=== PATIENT | male | born 1955 | race Caucasian/White ===

== ENCOUNTER 2023-11-05 13:44 | Inpatient (IN) | payer MEDICARE ==
--- NOTE | 2023-11-05 13:47 | ERPHSYRPT ---
- History of Present Illness Time Seen by Provider: 11/05/23 13:46 Source: patient, EMS Exam Limitations: no limitations Physician History: This is an overweight 68-year-old white male patient who presents to the emergency department by the ambulance service secondary to increasing/worsening shortness of breath. When EMS arrived to the patient's home, his room air oxy gen saturation levels 86%. Patient received 125 mg intravenous Solu-Medrol as well as 2 nebulizer treatments. There were rales present and therefore the paramedics provide the patient with Nitropaste topically. Patient arrives to the emergency department with DuoNeb treatment and an oxygen saturation level 95%. Patient denies chest pain. He denies fever. He has a chronic nonproductive cough. 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 He is a former smoker of cigarettes. Patient has a history of diabetes, hypertension, gastroesophageal reflux disease and hyperlipidemia. Timing/Duration: day(s) (2) Activities at Onset: none Severity of Dyspnea-Max: moderate Severity of Dyspnea-Current: moderate Possible Cause: occasional episodes Associated Symptoms: No chest pain/discomfort Allergies/Adverse Reactions: No Known Drug Allergies Allergy (Verified 11/05/23 13:45) Home Medications: Aspirin [Baby Aspirin] 81 mg PO DAILY 08/03/13 [History] Pravastatin Sodium [Pravachol] 40 mg PO DAILY 08/03/13 [History] Amlodipine Besylate 5 mg [Norvasc 5 mg] 10 mg PO DAILY 11/05/23 [History] Ascorbic Acid 500 mg [Vitamin C 500 MG] 1 tab PO DAILY 11/05/23 [History] Bumetanide 1 mg [Bumex 1 mg] 2 mg PO BID 11/05/23 [History] Famotidine 20 mg [Pepcid 20 MG] 40 mg PO DAILY 11/05/23 [History] Glipizide 5 mg [Glucotrol 5 MG] 1 tab PO BID 11/05/23 [History] [place]-3 Fatty Acids/Fish Oil [Fish Oil 1,000 mg Capsule] 1 cap PO DAILY 11/05/23 [History] Spironolactone 25 mg [Aldactone 25 MG] 1 tab PO BID 11/05/23 [History] Vitamin E (Dl,Tocopheryl Acet) [Vitamin E] 1 cap PO DAILY 11/05/23 [History] Hx Tetanus, Diphtheria Vaccination/Date Given: No Hx Influenza Vaccination/Date Given: Yes Hx Pneumococcal Vaccination/Date Given: No Travel Risk - International Travel Have you traveled outside of the country in past 3 weeks: No - Coronavirus Screening Are you exhibiting any of the following symptoms?: No Close contact with a COVID-19 positive Pt in past 14-21 Days: No - Review of Systems Constitutional: No Symptoms Eyes: No Symptoms Ears, Nose, & Throat: No Symptoms Respiratory: Dyspnea Cardiac: No Symptoms Abdominal/Gastrointestinal: No Symptoms Genitourinary Symptoms: No Symptoms Musculoskeletal: No Symptoms Skin: No Symptoms Neurological: No Symptoms Psychological: No Symptoms Endocrine: No Symptoms Hematologic/Lymphatic: No Symptoms Immunological/Allergic: No Symptoms All Other Systems: Reviewed and Negative - Past Medical History Pertinent Past Medical History: Yes Neurological History: No Pertinent History ENT History: Cataracts Cardiac History: High Cholesterol, Hypertension Respiratory History: No Pertinent History Endocrine Medical History: Diabetes Type II Musculoskeletal History: No Pertinent History GI Medical History: Gallbladder Disease History: No Pertinent History Psycho-Social History: No Pertinent History Male Reproductive Disorders: No Pertinent History - Past Surgical History Past Surgical History: Yes Neuro Surgical History: No Pertinent History Cardiac: No Pertinent History Respiratory: No Pertinent History Gastrointestinal: Cholecystectomy Genitourinary: No Pertinent History Musculoskeletal: No Pertinent History Male Surgical History: No Pertinent History Other Surgical History: CATRACT surgery both eye twice; cholecycstectomy january 2014 - Social History Smoking Status: Former smoker Exposure to second hand smoke: No Drug Use: none Patient Lives Alone: No Significant Family History: no pertinent family hx - Nursing Vital Signs Nursing Vital Signs: Initial Vital Signs Temperature 97 F 11/05/23 13:46 Pulse Rate 68 11/05/23 13:46 Respiratory Rate 26 H 11/05/23 13:46 Blood Pressure 123/49 11/05/23 13:46 O2 Sat by Pulse Oximetry 94 L 11/05/23 13:46 Pain Scale Pain Intensity 0 - Physical Exam General Appearance: no apparent distress, alert, anxiety Eye Exam: PERRL/EOMI, eyes nml inspection Ears, Nose, Throat Exam: hearing grossly normal, normal ENT inspection, normal pharynx Neck Exam: normal inspection, non-tender, supple, full range of motion Respiratory Exam: normal breath sounds, lungs clear, airway intact, No chest t enderness, No respiratory distress Cardiovascular/Chest Exam: normal heart sounds, regular rate/rhythm Abdominal/Gastrointestinal Exam: soft, normal bowel sounds, No tenderness Rectal Exam: not done Extremity Exam: non-tender, normal range of motion, normal inspection, normal capillary refill, no calf tenderness, no pedal edema, pelvis stable Neurologic Exam: alert, oriented x 3, cooperative, underwear welter II-XII nml as tested, normal mood/affect, nml cerebellar function, nml station & gait, sensation nml Skin Exam: normal color, warm, dry Lymphatic Exam: adenopathy SpO2 Interpretation: normal O2 Delivery: Room Air - Course Nursing assessment & vital signs reviewed: Yes EKG Interpreted by Me: RATE (72), Sinus Rhythm, Other (Prolonged CT interval. No acute ischemic changes on my evaluation of the initial twelve-lead EKG.) Ordered Tests: Active Orders 24 hr Category Date Time Status EKG-ER Only STAT Care 11/05/23 13:53 Active IV Insertion STAT Care 11/05/23 13:53 Active Pulse Oximetry (ED) STAT Care 11/05/23 13:53 Active CHEST 1 VIEW (PORTABLE) Stat Exams 11/05/23 13:56 Completed CHEST WITH CONTRAST [CT] Stat Exams 11/05/23 15:17 Completed BLOOD CULTURE Stat Lab 11/05/23 14:19 Received CBC W DIFF Stat Lab 11/05/23 14:12 Completed CMP Stat Lab 11/05/23 14:12 Completed D-DIMER QUANTITATIVE Stat Lab 11/05/23 14:12 Completed MAGNESIUM Stat Lab 11/05/23 14:12 Completed NT PRO BNPII Stat Lab 11/05/23 14:12 Completed POCT GLUCOSE Stat Lab 11/05/23 17:42 Completed PROTIME WITH INR Stat Lab 11/05/23 14:12 Completed TROPONIN Q4H Lab 11/05/23 14:12 Completed TROPONIN Q4H Lab 11/05/23 18:00 Ordered TROPONIN Q4H Lab 11/05/23 22:00 Ordered Transfer Order Routine Transfer 11/05/23 Ordered Medication Summary Discontinued Medications Generic Name Dose Route Start Last Admin Trade Name Freq PRN Reason Stop Dose Admin Bumetanide 2 mg 11/05/23 16:51 11/05/23 17:18 Bumetanide 0.25 Mg/Ml 4ml Vial IV 11/05/23 16:52 2 mg STAT STA Administration Bumetanide Confirm 11/05/23 17:14 Bumetanide 0.25 Mg/Ml 4ml Vial Administered 11/05/23 17:15 Dose 2 mg .ROUTE .STK-MED ONE Lab/Rad Data: Laboratory Result Diagrams 11/05/23 14:12 11/05/23 14:12 Laboratory Results 11/05/23 11/05/23 11/05/23 Range/Units 17:42 14:12 14:12 WBC (4.0-10.5) x10^3/uL RBC (4.1-5.6) x10^6/uL Hgb (12.5-18.0) g/dL Hct (42-50) % MCV (78-100) fL MCH (26-32) pg MCHC (32-36) g/dL RDW (11.5-14.0) % Plt Count (150-450) x10^3/uL MPV (7.5-11.0) fL Gran % (36.0-66.0) % Immature Gran % (Auto) (0.00-0.4) % Nucleat RBC Rel Count (0.00-0.1) % Eos # (Auto) (0-0.5) x10^3/uL Immature Gran # (Auto) (0.00-0.03) x10^3u/L Absolute Lymphs (auto) (1.0-4.6) x10^3/uL Absolute Monos (auto) (0.0-1.3) x10^3/uL Absolute Nucleated RBC (0.00-0.01) x10^3u/L Lymphocytes % (24.0-44.0) % Monocytes % (0.0-12.0) % Eosinophils % (0.00-5.0) % Basophils % (0.0-0.4) % Absolute Granulocytes (1.4-6.9) x10^3/uL Basophils # (0-0.4) x10^3/uL PT 10.6 (9.4-12.5) SECONDS INR 0.97 (0.8-3.0) D-Dimer 1.01 H* (0.0-0.50) mg/L Sodium (137-145) mmol/L Potassium (3.5-5.1) mmol/L Chloride (98-107) mmol/L Carbon Dioxide (22-30) mmol/L Anion Gap (5-15) MEQ/L BUN (9-20) mg/dL Creatinine (0.66-1.25) mg/dL Estimated GFR ML/MIN Glucose (74-106) mg/dL POC Glucometer 238 H (74 to 106) mg/dL Calcium (8.4-10.2) mg/dL Magnesium (1.6-2.3) mg/dL Total Bilirubin (0.2-1.3) mg/dL AST (17-59) U/L ALT (0-50) U/L Alkaline Phosphatase (38-126) U/L Troponin I 2.320 H* (0.000-0.034) ng/mL NT-Pro-B Natriuret Pep 6380 (<300) pg/mL Serum Total Protein (6.3-8.2) g/dL Albumin (3.5-5.0) g/dL 11/05/23 11/05/23 Range/Units 14:12 14:12 WBC 12.5 H (4.0-10.5) x10^3/uL RBC 3.98 L (4.1-5.6) x10^6/uL Hgb 12.9 (12.5-18.0) g/dL Hct 39.7 L (42-50) % MCV 99.7 (78-100) fL MCH 32.4 H (26-32) pg MCHC 32.5 (32-36) g/dL RDW 13.2 (11.5-14.0) % Plt Count 330 (150-450) x10^3/uL MPV 10.6 (7.5-11.0) fL Gran % 69.4 H (36.0-66.0) % Immature Gran % (Auto) 0.5 H (0.00-0.4) % Nucleat RBC Rel Count 0.0 (0.00-0.1) % Eos # (Auto) 0.24 (0-0.5) x10^3/uL Immature Gran # (Auto) 0.06 H (0.00-0.03) x10^3u/L Absolute Lymphs (auto) 2.27 (1.0-4.6) x10^3/uL Absolute Monos (auto) 1.17 (0.0-1.3) x10^3/uL Absolute Nucleated RBC 0.00 (0.00-0.01) x10^3u/L Lymphocytes % 18.2 L (24.0-44.0) % Monocytes % 9.4 (0.0-12.0) % Eosinophils % 1.9 (0.00-5.0) % Basophils % 0.6 (0.0-0.4) % Absolute Granulocytes 8.68 H (1.4-6.9) x10^3/uL Basophils # 0.08 (0-0.4) x10^3/uL PT (9.4-12.5) SECONDS INR (0.8-3.0) D-Dimer (0.0-0.50) mg/L Sodium 135 L (137-145) mmol/L Potassium 4.2 (3.5-5.1) mmol/L Chloride 102 (98-107) mmol/L Carbon Dioxide 25 (22-30) mmol/L Anion Gap 11.9 (5-15) MEQ/L BUN 44 H (9-20) mg/dL Creatinine 1.55 H (0.66-1.25) mg/dL Estimated GFR 47.9 ML/MIN Glucose 224 H (74-106) mg/dL POC Glucometer (74 to 106) mg/dL Calcium 8.7 (8.4-10.2) mg/dL Magnesium 2.0 (1.6-2.3) mg/dL Total Bilirubin 1.10 (0.2-1.3) mg/dL AST 59 (17-59) U/L ALT 37 (0-50) U/L Alkaline Phosphatase 139 H (38-126) U/L Troponin I (0.000-0.034) ng/mL NT-Pro-B Natriuret Pep (<300) pg/mL Serum Total Protein 7.5 (6.3-8.2) g/dL Albumin 3.8 (3.5-5.0) g/dL - Progress Progress: improved, re-examined Air Movement: good Progress Note: 11/05/23 15:35 This patient's medical issue is of high complexity. The level of complexity in the workup performed is based on review of the patient's past medical history, review of the patient's medication list, review of patient drug allergy list, history present illness and physical findings on examination. This patient workup includes placement of intravenous line, chest x-ray, CBC, CMP, D-dimer, BNP, viral swabs, troponin level, twelve-lead EKG and chest x-ray. I interpreted the patient's laboratory data, the patient has an elevated troponin level, he has what appears to be acute renal failure/insufficiency when compared to old labs that I reviewed. Patient also has an elevated D-dimer level and we will be obtaining a CT scan of the chest with contrast to evaluate for pulmonary embolus. This patient will likely be transferred to another facility where there is cardiology and pulmonology available. 11/05/23 16:54 Chest x-ray was interpreted by the radiologist and I reviewed the impression. There is cardiomegaly present. There is bibasilar pleural effusions. Picture consistent with CHF. CT scan of the chest with contrast was interpreted by the radiologist and I reviewed the impression. This study is negative for pulmonary embolus. There is cardiomegaly as well as bibasilar pleural effusions and picture consistent with congestive heart failure. 11/05/23 17:[address] [facility] for possible transfer. They informed us that they are not accepting any patients secondary to full capacity. We discussed this issue with the family and patient. The family and patient desire to stay at this facility if at all possible. The patient and the family are considering a DO NOT RESUSCITATE order. However we will await their decision. My concern that the elevated troponin is not solely caused by acute renal failure and significant right heart strain due to congestive heart failure. 11/05/23 17:34 The patient and family have decided that they want to stay at [facility] and they will will sign the DO NOT RESUSCITATE form. 11/05/23 17:[address] Wood, our telehospitalist. I reviewed the patient history, I reviewed the patient's chief complaint, I reviewed the results of the radiographic studies and laboratory data results. I reviewed and discussed with him regarding the patient wanting to stay at this hospital and the patient will be signing a DO NOT RESUSCITATE form. Dr. Wood accepts the patient for admission Blood Culture(s) Obtained: Yes Antibiotics given: No Counseled pt/family regarding: lab results, diagnosis, need for follow-up, rad results Medical Desision Making - Independent Historian Additional History obtained from: Spouse, Family - Diagnostic Testing Diagnostic test were ordered, analyzed, and reviewed by me: Yes Radiological Interpretation: Reviewed by me, Teleradiologist Report - Risk of complications The pt has a high risk of morbidity or mortality based on: Decision regarding h ospitilization or escalation of hosp level of care - Departure Departure Disposition: In-patient Admission Clinical Impression: Acute renal failure (ARF), Elevated troponin, Elevated d-dimer, CHF exacerbation, Hypoxia Condition: Fair Critical Care Time: Yes Critical Care Time(excluding separately billable procedures): Critical 30-74 mins (45) Referrals: JEFFERY BAKER MD [Primary Care Provider] - Follow up/PCP as directed Instructions: Heart Failure
--- NOTE | 2023-11-05 14:12 | XRAY ---
Indication: Short of breath. Comparison: September 26, 2018 Portable chest now demonstrates cardiomegaly with tiny bibasilar effusions favoring cardiac decompensation/CHF. Worsening moderate bibasilar infiltrates versus atelectasis. Stable left apical calcified granuloma, osteopenia, and mild bony degenerative changes.
[2023-11-05 14:27] LABS: Absolute Neutrophil Ct (ANC) 8.68 x10^3/uL (1.4-6.9); BASOPHIL % 0.6 % (0.0-0.4); Basophil (Absolute #) 0.08 x10^3/uL (0-0.4); Eosinophil % 1.9 % (0.00-5.0); Eosinophil (Absolute #) 0.24 x10^3/uL (0-0.5); Hematocrit 39.7 % (42-50); Hemoglobin 12.9 g/dL (12.5-18.0); IMMATURE GRAN # 0.06 x10^3u/L (0.00-0.03); IMMATURE GRAN % 0.5 % (0.00-0.4); Lymphocyte (Absolute #) 2.27 x10^3/uL (1.0-4.6); Lymphocytes % 18.2 % (24.0-44.0); Mean Cell Volume 99.7 fL (78-100); Mean Corpuscular Hemoglobin 32.4 pg (26-32); Mean Corpuscular Hgb Concent. 32.5 g/dL (32-36); Mean Platelet Volume 10.6 fL (7.5-11.0); Monocyte (Absolute #) 1.17 x10^3/uL (0.0-1.3); Monocytes % 9.4 % (0.0-12.0); Neutrophil % 69.4 % (36.0-66.0); Platelet Count 330 x10^3/uL (150-450); Red Blood Count 3.98 x10^6/uL (4.1-5.6); Red Cell Distribution Width 13.2 % (11.5-14.0); White Blood Count 12.5 x10^3/uL (4.0-10.5)
[2023-11-05 14:45] LABS: ALBUMIN 3.8 g/dL (3.5-5.0); ANION GAP 11.9 MEQ/L (5-15); BILIRUBIN,TOTAL 1.1 mg/dL (0.2-1.3); Calcium 8.7 mg/dL (8.4-10.2); Creatinine 1 1.55 mg/dL (0.66-1.25); EST GLOMERULAR FILTRATION RATE 47.9 ML/MIN; Potassium 4.2 mmol/L (3.5-5.1); Total Protein 7.5 g/dL (6.3-8.2)
[2023-11-05 14:49] LABS: INR 0.97 (0.8-3.0); PROTIME 10.6 SECONDS (9.4-12.5)
[2023-11-05 15:06] LABS: D-DIMER QUANTITATIVE 1.01 mg/L (0.0-0.50)
[2023-11-05 15:27] LABS: TROPONIN 2.32 ng/mL (0.000-0.034)
--- NOTE | 2023-11-05 16:32 | XRAY ---
Indication: Short of breath. Elevated d-dimer. History CHF. Multiple contiguous images obtained through the chest using 100 cc Isovue-370 contrast and PE protocol. Comparison: None Adequate opacification pulmonary arteries including lobar and segmental branches. No pulmonary embolus. Heart enlarged with scattered coronary calcifications. Aorta is minimally arteriosclerotic without aneurysm/dissection. No pathologic mediastinal/hilar lymphadenopathy. Lungs demonstrates moderate bilateral effusions with mild bibasilar compressive atelectasis. Incidental small left upper lobe calcified granuloma. Bony thorax intact with mild degenerative changes throughout the spine and bilateral gynecomastia. Limited upper abdomen demonstrates cirrhotic liver without ascites. Impression: 1. Negative pulmonary embolus. 2. Cardiomegaly with bibasilar effusions/atelectasis favoring cardiac decompensation/CHF. Findings corresponding chest radiograph findings. 3. Chronic findings including degenerative spondylosis, bilateral gynecomastia, arteriosclerotic disease, cirrhotic liver, and old granulomatous disease.
[2023-11-05] MEDS ORDERED: BUMEX 1 MG ONE (17:14)
[2023-11-05] MEDS: BUMEX 1 MG IV STA (17:18)
[2023-11-05] MEDS ORDERED: Sodium Chloride 0.9% 1000 ML 1,000 ML IV SCH (18:22)
[2023-11-05] MEDS ORDERED: TYLENOL 325 MG PO PRN (18:22)
[2023-11-05] MEDS ORDERED: Zofran 4 MG/2 ML VIAL IV PRN (18:22)
--- NOTE | 2023-11-05 20:52 | PCM.HP ---
History of Present Illness - Chief Complaint Chief Complaint: shortness of breath Date: 11/05/23 History of Present Illness: is a 68-year-old man with history of HFpEF, DM2, and hypertension, who presents with dyspnea. Patient was diagnosed with diastolic heart failure 5 years ago at [facility], where he noted he had to have 36 L of fluid removed. Since then, he has been compliant with his medications and trying to watch his salt intake, and has not had to be hospitalized again. He does not follow with a edge stainer, but has been managed by his PCP. He had an echocardiogram done September 2022 that showed preserved EF and no regional wall motion abnormalities. However, for the past few days, he has noted worsening of his chronic leg edema, associated with progressive dyspnea, worse with exertion, with decreased exercise tolerance, orthopnea to where he now has to sleep in a recliner, and PND. He denies chest pain or pressure, nausea, diaphoresis, or numbness. He has been compliant with his medications. Currently he takes Bumex 1 mg twice a day and spironolactone 25 mg twice a day. He noted onset of cough about 1 week prior to the episode, but denies any fever, sore throat, sick contacts, or dysuria. In the ER, patient was given Bumex 2 mg IV, but he has only put out 250 mL of fluid in the last 3 hours since getting it. - Review of Systems Constitutional: No Fever, No Fatigue, No Night Sweats Eyes: No Symptoms Ears, Nose, & Throat: No Throat Pain, No Throat Swelling, No Painful Swallowing Respiratory: Cough, Orthopnea, Short Of Breath, No Stridor, No Wheezing Cardiac: Edema, Orthopnea, PND, No Chest Pain, No Palpitations, No Syncope Abdominal/Gastrointestinal: No Abdominal Pain, No Nausea, No Vomiting, No Diarrhea Genitourinary Symptoms: No Dysuria, No Frequency, No Hematuria, No Hesitancy All Other Systems: Reviewed and Negative Medications & Allergies Home Medications: Home Medication List Aspirin [Baby Aspirin] 81 mg PO DAILY 08/03/13 [History Confirmed 11/05/23] Pravastatin Sodium [Pravachol] 40 mg PO DAILY 08/03/13 [History Confirmed 11/05/23] Amlodipine Besylate 5 mg [Norvasc 5 mg] 10 mg PO DAILY 11/05/23 [History Confirmed 11/05/23] Ascorbic Acid 500 mg [Vitamin C 500 MG] 1 tab PO DAILY 11/05/23 [History Confirmed 11/05/23] Bumetanide 1 mg [Bumex 1 mg] 1 mg PO BID 11/05/23 [History Confirmed 11/05/23] Cholecalciferol (Vitamin D3) [Vitamin D-400] 10 mcg PO DAILY 11/05/23 [History Confirmed 11/05/23] Famotidine 20 mg [Pepcid 20 MG] 40 mg PO DAILY 11/05/23 [History Confirmed 11/05/23] Glipizide 5 mg [Glucotrol 5 MG] 1 tab PO BID 11/05/23 [History Confirmed 11/05/23] [place]-3 Fatty Acids/Fish Oil [Fish Oil 1,000 mg Capsule] 1 cap PO DAILY 11/05/23 [History Confirmed 11/05/23] Spironolactone 25 mg [Aldactone 25 MG] 1 tab PO BID 11/05/23 [History Confirmed 11/05/23] Vitamin E (Dl,Tocopheryl Acet) [Vitamin E] 1 cap PO DAILY 11/05/23 [History Confirmed 11/05/23] Zinc Gluconate 50 mg [Zinc Gluconate 50 MG] 50 mg PO DAILY 11/05/23 [History Confirmed 11/05/23] Allergies/Adverse Reactions: Allergies Allergy/AdvReac Type Severity Reaction Status Date / Time No Known Drug Allergies Allergy Verified 11/05/23 13:45 - Past Medical History Past Medical History: Yes Neurological History: No Pertinent History ENT History: Cataracts Cardiac History: Congestive Heart Failure (preserved EF), High Cholesterol, Hypertension Respiratory History: No Pertinent History Endocrine Medical History: Diabetes Type II Musculoskelatal History: No Pertinent History GI Medical History: Gallbladder Disease History: No Pertinent History Pyscho-Social History: No Pertinent History Male Reproductive Disorders: No Pertinent History Comment: No edge stainer - Past Surgical History Past Surgical History: Yes Neuro Surgical History: No Pertinent History Cardiac History: No Pertinent History Respiratory Surgery: No Pertinent History GI Surgical History: Cholecystectomy Genitourinary Surgical Hx: No Pertinent History Musculskeletal Surgical Hx: No Pertinent History Male Surgical History: No Pertinent History Other Surgical History: CATRACT surgery both eye twice; cholecycstectomy january 2014 Significant Family History: diabetes, other (no h/o heart disease) - Social History Smoking Status: Former smoker (quit in the ) Exposure to second hand smoke: No Alcohol: None Drug Use: none - Social Determinants of Health Will the patient participate in the screening: Yes Do you worry about a steady place to live?: No Do you have any problems with any of the following?: No known problems In the past 12 months,have you had to go without utilities?: No Have you or anyone in your house had to go without enough: No Transportation Issues: No Has anyone in your support network made you feel unsafe?: No Does the patient want assistance with any of the above?: No - Physical Exam Vital Signs: Vital Signs - 24 hr Temp Pulse Resp BP BP Pulse Ox 11/05/23 18:55 73 18 91 L 11/05/23 18:24 97 F 71 27 H 123/49 92 L 11/05/23 18:02 71 27 H 137/66 92 L 11/05/23 17:31 86 55 H 128/60 92 L 11/05/23 17:01 72 24 131/55 89 L 11/05/23 16:54 71 15 133/48 90 L 11/05/23 16:53 71 15 90 L 11/05/23 16:50 73 20 90 L 11/05/23 16:40 72 22 91 L 11/05/23 16:32 73 22 89 L 11/05/23 16:24 72 28 H 124/65 90 L 11/05/23 15:31 131/58 11/05/23 15:01 69 11 L 125/43 90 L 11/05/23 14:50 71 21 124/61 91 L 11/05/23 14:31 71 15 89 L 11/05/23 14:01 74 28 H 106/86 92 L 11/05/23 13:53 91 L 11/05/23 13:46 97 F 68 26 H 123/49 94 L General Appearance: no apparent distress Neurologic Exam: alert, oriented x 3, cooperative Eye Exam: PERRL/EOMI Respiratory Exam: lungs clear, other (on 2L oxygen), No respiratory distress, No diminished breath sounds, No accessory muscle use, No prolonged expirations, No crackles/rales, No rhonchi, No wheezing Cardiovascular Exam: regular rate/rhythm, edema (tense edema in BLE), No murmur, No gallop Gastrointestinal/Abdomen Exam: soft, No tenderness, No distention Results - Labs Lab/Micro Results: Lab Results-Last 24 Hours 11/05/23 11/05/23 11/05/23 Range/Units 14:12 14:12 14:12 WBC 12.5 H (4.0-10.5) x10^3/uL RBC 3.98 L (4.1-5.6) x10^6/uL Hgb 12.9 (12.5-18.0) g/dL Hct 39.7 L (42-50) % MCV 99.7 (78-100) fL MCH 32.4 H (26-32) pg MCHC 32.5 (32-36) g/dL RDW 13.2 (11.5-14.0) % Plt Count 330 (150-450) x10^3/uL MPV 10.6 (7.5-11.0) fL Gran % 69.4 H (36.0-66.0) % Immature Gran % (Auto) 0.5 H (0.00-0.4) % Nucleat RBC Rel Count 0.0 (0.00-0.1) % Eos # (Auto) 0.24 (0-0.5) x10^3/uL Immature Gran # (Auto) 0.06 H (0.00-0.03) x10^3u/L Absolute Lymphs (auto) 2.27 (1.0-4.6) x10^3/uL Absolute Monos (auto) 1.17 (0.0-1.3) x10^3/uL Absolute Nucleated RBC 0.00 (0.00-0.01) x10^3u/L Lymphocytes % 18.2 L (24.0-44.0) % Monocytes % 9.4 (0.0-12.0) % Eosinophils % 1.9 (0.00-5.0) % Basophils % 0.6 (0.0-0.4) % Absolute Granulocytes 8.68 H (1.4-6.9) x10^3/uL Basophils # 0.08 (0-0.4) x10^3/uL PT 10.6 (9.4-12.5) SECONDS INR 0.97 (0.8-3.0) D-Dimer 1.01 H* (0.0-0.50) mg/L Sodium 135 L (137-145) mmol/L Potassium 4.2 (3.5-5.1) mmol/L Chloride 102 (98-107) mmol/L Carbon Dioxide 25 (22-30) mmol/L Anion Gap 11.9 (5-15) MEQ/L BUN 44 H (9-20) mg/dL Creatinine 1.55 H (0.66-1.25) mg/dL Estimated GFR 47.9 ML/MIN Glucose 224 H (74-106) mg/dL Calcium 8.7 (8.4-10.2) mg/dL Magnesium 2.0 (1.6-2.3) mg/dL Total Bilirubin 1.10 (0.2-1.3) mg/dL AST 59 (17-59) U/L ALT 37 (0-50) U/L Alkaline Phosphatase 139 H (38-126) U/L Serum Total Protein 7.5 (6.3-8.2) g/dL Albumin 3.8 (3.5-5.0) g/dL 11/05/23 11/05/23 11/05/23 Range/Units 14:12 17:42 18:15 WBC (4.0-10.5) x10^3/uL RBC (4.1-5.6) x10^6/uL Hgb (12.5-18.0) g/dL Hct (42-50) % MCV (78-100) fL MCH (26-32) pg MCHC (32-36) g/dL RDW (11.5-14.0) % Plt Count (150-450) x10^3/uL MPV (7.5-11.0) fL Gran % (36.0-66.0) % Immature Gran % (Auto) (0.00-0.4) % Nucleat RBC Rel Count (0.00-0.1) % Eos # (Auto) (0-0.5) x10^3/uL Immature Gran # (Auto) (0.00-0.03) x10^3u/L Absolute Lymphs (auto) (1.0-4.6) x10^3/uL Absolute Monos (auto) (0.0-1.3) x10^3/uL Absolute Nucleated RBC (0.00-0.01) x10^3u/L Lymphocytes % (24.0-44.0) % Monocytes % (0.0-12.0) % Eosinophils % (0.00-5.0) % Basophils % (0.0-0.4) % Absolute Granulocytes (1.4-6.9) x10^3/uL Basophils # (0-0.4) x10^3/uL PT (9.4-12.5) SECONDS INR (0.8-3.0) D-Dimer (0.0-0.50) mg/L Sodium (137-145) mmol/L Potassium (3.5-5.1) mmol/L Chloride (98-107) mmol/L Carbon Dioxide (22-30) mmol/L Anion Gap (5-15) MEQ/L BUN (9-20) mg/dL Creatinine (0.66-1.25) mg/dL Estimated GFR ML/MIN Glucose (74-106) mg/dL POC Glucometer 238 H (74 to 106) mg/dL Calcium (8.4-10.2) mg/dL Magnesium (1.6-2.3) mg/dL Total Bilirubin (0.2-1.3) mg/dL AST (17-59) U/L ALT (0-50) U/L Alkaline Phosphatase (38-126) U/L Troponin I 2.320 H* 2.100 H* (0.000-0.034) ng/mL NT-Pro-B Natriuret Pep 6380 (<300) pg/mL Serum Total Protein (6.3-8.2) g/dL Albumin (3.5-5.0) g/dL - Radiology Impressions Radiology Exams & Impressions: Radiology Procedures Category Date Time Status CHEST 1 VIEW (PORTABLE) Stat Exams 11/05/23 13:56 Completed CHEST WITH CONTRAST [CT] Stat Exams 11/05/23 15:17 Completed CXRbilateral edema and small bilateral pleural effusions (images personally reviewed) CT chestno pulmonary embolus, but cardiomegaly with bibasilar effusions and overall edema. - Other Procedures and Tests Respiratory Therapy 11/05/23 18:22 EKG REPEAT IN AM Oxygen Nasal Cannula 2 lpm 11/05/23 19:50 Respiratory Therapy Assessment DAILY Assessment/Plan (1) Acute on chronic diastolic heart failure Current Visit: Yes Status: Acute Assessment & Plan: 68-year-old man with history of HFpEF, DM2, and hypertension, here with acute on chronic diastolic heart failure, associated with acute kidney injury. ## Acute on chronic diastolic heart failure trigger is unknown, although elevated troponin raises possibility of NSTEMI. However, patient adamantly denies any symptoms of chest pain or pressure. Repeat troponin is trending down (see below). He states he is compliant with all of his medications has had no change in diet or other medications. Perhaps he had a URI last week based on his symptoms, but still unclear why this would be his first severe exacerbation in 5 years on his current regimen. His reported dry weight is 245-250 pounds, and he is currently 288 pounds on admission. Elevation in BNP and pulmonary edema on CXR are all consistent with CHF exacerbation. His last echo was done 13 months ago. Poor response to his initial dose of Bumex in the ER. His home dosing of Bumex is 1 mg BID; per the DOSE trial, equivalent dosing of 2-1/2 times the oral dose seem to be well-tolerated and led to shorter hospital stays with minimal impact on renal function. Start Lasix 80 mg IV BID, with dose now Trend troponins (see below) Repeat echocardiogram Check TSH Daily weights ## Acute kidney injury likely secondary to renal venous congestion, which normally improves with diuresis. Follow while on aggressive diuresis ## NSTEMI troponin elevation is quite marked, although initial repeat is coming down. However, patient has no symptoms of chest pain or MN. He does have some MATT, as well as reasons for increased demand ischemia from the volume overload. However, it is concerning that he could have had a new ischemic event. However, patient declined transfer to another facility for cardiac evaluation, understanding that we would not be able to do cardiac interventions at [facility]. Trend troponins Monitor on telemetry Check echo as above, will evaluate for new regional wall motion abnormalities that were not there September 2022 ## Leukocytosis possibly secondary to steroids given by EMS, although that is a fairly quick response. Could also be stress-induced from his CHF exacerbation. No signs of acute infection. Trend WBC ## Type 2 diabetes only on glipizide at home, but glucose levels on arrival are elevated. This could be due to the high-dose Solu-Medrol he was given in the field by EMS. Moderate dose sliding scale insulin Hold home glipizide for now Check hemoglobin A1c ## Hypertension blood pressure currently controlled. Continue home amlodipine 5 mg daily ## Dyslipidemia Continue home Pravachol CODE STATUS: DNR Diet: Diabetic, 2 g sodium Prophylaxis: Subcu heparin Code(s): I50.33 - ACUTE ON CHRONIC DIASTOLIC (CONGESTIVE) HEART FAILURE Telemedicine Encounter - Telemedicine Encounter Telemedicine Encounter: The entirety of this encounter was performed via Telemedicine"
[2023-11-05] MEDS: Lasix 40 MG/4 ML IV ONE (21:15)
[2023-11-05] MEDS: HUMULIN R SQ PRN (22:00)
[2023-11-06 04:50] LABS: Absolute Neutrophil Ct (ANC) 9.08 x10^3/uL (1.4-6.9); BASOPHIL % 0.2 % (0.0-0.4); Basophil (Absolute #) 0.02 x10^3/uL (0-0.4); Eosinophil (Absolute #) 0 x10^3/uL (0-0.5); Hematocrit 38.2 % (42-50); Hemoglobin 12.4 g/dL (12.5-18.0); IMMATURE GRAN # 0.04 x10^3u/L (0.00-0.03); IMMATURE GRAN % 0.4 % (0.00-0.4); Lymphocyte (Absolute #) 1.17 x10^3/uL (1.0-4.6); Lymphocytes % 10.9 % (24.0-44.0); Mean Cell Volume 100.8 fL (78-100); Mean Corpuscular Hemoglobin 32.7 pg (26-32); Mean Corpuscular Hgb Concent. 32.5 g/dL (32-36); Mean Platelet Volume 11.3 fL (7.5-11.0); Monocyte (Absolute #) 0.39 x10^3/uL (0.0-1.3); Monocytes % 3.6 % (0.0-12.0); Neutrophil % 84.9 % (36.0-66.0); Platelet Count 322 x10^3/uL (150-450); Red Blood Count 3.79 x10^6/uL (4.1-5.6); Red Cell Distribution Width 13.4 % (11.5-14.0); White Blood Count 10.7 x10^3/uL (4.0-10.5)
[2023-11-06 05:08] LABS: ALBUMIN 3.7 g/dL (3.5-5.0); ANION GAP 13.9 MEQ/L (5-15); BILIRUBIN,TOTAL 0.8 mg/dL (0.2-1.3); Calcium 8.5 mg/dL (8.4-10.2); Creatinine 1 1.96 mg/dL (0.66-1.25); EST GLOMERULAR FILTRATION RATE 36.1 ML/MIN; Total Protein 7.2 g/dL (6.3-8.2)
[2023-11-06] MEDS ORDERED: HUMULIN R ONE (07:33)
[2023-11-06] MEDS ORDERED: HUMALOG SQ PRN (08:14)
[2023-11-06] MEDS: DUONEB 0.5-3 MG/3 ml Neb IH ONE (09:57)
[2023-11-06] MEDS ORDERED: BABY ASPIRIN 81 MG CHEW PO SCH (10:00)
[2023-11-06] MEDS ORDERED: NON-FORMULARY ITEM (Pravastatin Sodium [Pravachol] 40 MG Tablet) PO SCH (10:00)
[2023-11-06] MEDS: NORVASC 5 MG PO SCH (11:09)
[2023-11-06] MEDS: Pepcid 20 MG PO SCH (11:09)
[2023-11-06] MEDS: Lantus Insulin SQ SCH (11:09)
[2023-11-06] MEDS: Lasix 40 MG/4 ML IV SCH (11:09)
[2023-11-06] MEDS: ECOTRIN 81 MG PO SCH (11:09)
[2023-11-06 11:36] VITALS: RESP 16; TEMP 97.7
[2023-11-06] MEDS: HUMALOG SQ SCH (13:04)
[2023-11-06] MEDS ORDERED: DUONEB 0.5-3 MG/3 ml Neb IH ONE (15:01)
[2023-11-06] MEDS ORDERED: HEPARIN 5000 UNITS/0.5 ML (HIGH RISK MED) IV PRN (15:43)
--- NOTE | 2023-11-06 15:45 | PCM.DS ---
Discharge Summary Date of Admission: 11/05/23 18:21 Date of Discharge: 11/06/23 Admitting Physician: KARLEY GIBBONS MD Primary Care Provider: JEFFERY BAKER Allergies Allergies No Known Drug Allergies Allergy (Verified 11/05/23 13:45) Hospital Summary - Hospital Course Hospital Course: is a 68-year-old man with history of HFpEF, DM2, and hypertension, who presented on 11/05 with dyspnea. Patient was diagnosed with diastolic heart failure 5 years ago at [facility], where he noted he had to have 36 L of fluid removed. Since then, he has been compliant with his medications and trying to watch his salt intake, and has not had to be hospitalized again. He does not follow with a spot washer, but has been managed by his PCP. He had an echocardiogram done September 2022 that showed preserved EF and no regional wall motion abnormalities. However, for the past few days, he has noted worsening of his chronic leg edema, associated with progressive dyspnea, worse with exertion, with decreased exercise tolerance, orthopnea to where he now has to sleep in a recliner, and PND. He denies chest pain or pressure, nausea, diaphoresis, or numbness. He has been compliant with his medications. Currently he takes Bumex 1 mg twice a day and spironolactone 25 mg twice a day. He noted onset of cough about 1 week prior to the episode, but denies any fever, sore throat, sick contacts, or dysuria. In the ER, patient was given Bumex 2 mg IV. Since admission he is having little urine output despite giving IV diuretics. He has increasing edema and shortness of breath. He was placed on Biapap by RT this afternoon. After discussing with his family he has resended the DNR and wants to be a full code. He would like transfer for cardiorenal syndrome. - Vitals & Intake/Output Vital Signs: Vital Signs Temperature 97.7 F 11/06/23 11:00 Pulse Rate 80 11/06/23 11:00 Respiratory Rate 16 11/06/23 11:00 Blood Pressure 126/58 11/06/23 11:00 O2 Sat by Pulse Oximetry 89 L 11/06/23 11:00 Intake & Output: Intake & Output 11/04/23 11/05/23 11/06/23 11/07/23 11:59 11:59 11:59 11:59 Intake Total 480 580 Output Total 1175 100 Balance -695 480 Weight 131 kg - Lab Result Diagrams: 11/06/23 04:15 11/06/23 04:15 Lab Results-Last 24 Hrs: Lab Results-Last 24 Hours 11/05/23 11/05/23 11/05/23 Range/Units 17:42 18:15 21:26 WBC (4.0-10.5) x10^3/uL RBC (4.1-5.6) x10^6/uL Hgb (12.5-18.0) g/dL Hct (42-50) % MCV (78-100) fL MCH (26-32) pg MCHC (32-36) g/dL RDW (11.5-14.0) % Plt Count (150-450) x10^3/uL MPV (7.5-11.0) fL Gran % (36.0-66.0) % Immature Gran % (Auto) (0.00-0.4) % Nucleat RBC Rel Count (0.00-0.1) % Eos # (Auto) (0-0.5) x10^3/uL Immature Gran # (Auto) (0.00-0.03) x10^3u/L Absolute Lymphs (auto) (1.0-4.6) x10^3/uL Absolute Monos (auto) (0.0-1.3) x10^3/uL Absolute Nucleated RBC (0.00-0.01) x10^3u/L Lymphocytes % (24.0-44.0) % Monocytes % (0.0-12.0) % Eosinophils % (0.00-5.0) % Basophils % (0.0-0.4) % Absolute Granulocytes (1.4-6.9) x10^3/uL Basophils # (0-0.4) x10^3/uL Sodium (137-145) mmol/L Potassium (3.5-5.1) mmol/L Chloride (98-107) mmol/L Carbon Dioxide (22-30) mmol/L Anion Gap (5-15) MEQ/L BUN (9-20) mg/dL Creatinine (0.66-1.25) mg/dL Estimated GFR ML/MIN Glucose (74-106) mg/dL POC Glucometer 238 H 332 H (74 to 106) mg/dL Hemoglobin A1c (4.5-6.0) % Calcium (8.4-10.2) mg/dL Total Bilirubin (0.2-1.3) mg/dL AST (17-59) U/L ALT (0-50) U/L Alkaline Phosphatase (38-126) U/L Troponin I 2.100 H* (0.000-0.034) ng/mL Serum Total Protein (6.3-8.2) g/dL Albumin (3.5-5.0) g/dL TSH 3rd Generation (0.47-4.68) mIU/L 11/05/23 11/06/23 11/06/23 Range/Units 22:02 04:15 04:15 WBC 10.7 H (4.0-10.5) x10^3/uL RBC 3.79 L (4.1-5.6) x10^6/uL Hgb 12.4 L (12.5-18.0) g/dL Hct 38.2 L (42-50) % MCV 100.8 H (78-100) fL MCH 32.7 H (26-32) pg MCHC 32.5 (32-36) g/dL RDW 13.4 (11.5-14.0) % Plt Count 322 (150-450) x10^3/uL MPV 11.3 H (7.5-11.0) fL Gran % 84.9 H (36.0-66.0) % Immature Gran % (Auto) 0.4 (0.00-0.4) % Nucleat RBC Rel Count 0.0 (0.00-0.1) % Eos # (Auto) 0 (0-0.5) x10^3/uL Immature Gran # (Auto) 0.04 H (0.00-0.03) x10^3u/L Absolute Lymphs (auto) 1.17 (1.0-4.6) x10^3/uL Absolute Monos (auto) 0.39 (0.0-1.3) x10^3/uL Absolute Nucleated RBC 0.00 (0.00-0.01) x10^3u/L Lymphocytes % 10.9 L (24.0-44.0) % Monocytes % 3.6 (0.0-12.0) % Eosinophils % 0.0 (0.00-5.0) % Basophils % 0.2 (0.0-0.4) % Absolute Granulocytes 9.08 H (1.4-6.9) x10^3/uL Basophils # 0.02 (0-0.4) x10^3/uL Sodium 133 L (137-145) mmol/L Potassium 5.0 (3.5-5.1) mmol/L Chloride 100 (98-107) mmol/L Carbon Dioxide 24 (22-30) mmol/L Anion Gap 13.9 (5-15) MEQ/L BUN 55 H (9-20) mg/dL Creatinine 1.96 H (0.66-1.25) mg/dL Estimated GFR 36.1 ML/MIN Glucose 318 H (74-106) mg/dL POC Glucometer (74 to 106) mg/dL Hemoglobin A1c (4.5-6.0) % Calcium 8.5 (8.4-10.2) mg/dL Total Bilirubin 0.80 (0.2-1.3) mg/dL AST 53 (17-59) U/L ALT 36 (0-50) U/L Alkaline Phosphatase 127 H (38-126) U/L Troponin I 1.640 H* (0.000-0.034) ng/mL Serum Total Protein 7.2 (6.3-8.2) g/dL Albumin 3.7 (3.5-5.0) g/dL TSH 3rd Generation (0.47-4.68) mIU/L 11/06/23 11/06/23 11/06/23 Range/Units 04:15 04:15 06:47 WBC (4.0-10.5) x10^3/uL RBC (4.1-5.6) x10^6/uL Hgb (12.5-18.0) g/dL Hct (42-50) % MCV (78-100) fL MCH (26-32) pg MCHC (32-36) g/dL RDW (11.5-14.0) % Plt Count (150-450) x10^3/uL MPV (7.5-11.0) fL Gran % (36.0-66.0) % Immature Gran % (Auto) (0.00-0.4) % Nucleat RBC Rel Count (0.00-0.1) % Eos # (Auto) (0-0.5) x10^3/uL Immature Gran # (Auto) (0.00-0.03) x10^3u/L Absolute Lymphs (auto) (1.0-4.6) x10^3/uL Absolute Monos (auto) (0.0-1.3) x10^3/uL Absolute Nucleated RBC (0.00-0.01) x10^3u/L Lymphocytes % (24.0-44.0) % Monocytes % (0.0-12.0) % Eosinophils % (0.00-5.0) % Basophils % (0.0-0.4) % Absolute Granulocytes (1.4-6.9) x10^3/uL Basophils # (0-0.4) x10^3/uL Sodium (137-145) mmol/L Potassium (3.5-5.1) mmol/L Chloride (98-107) mmol/L Carbon Dioxide (22-30) mmol/L Anion Gap (5-15) MEQ/L BUN (9-20) mg/dL Creatinine (0.66-1.25) mg/dL Estimated GFR ML/MIN Glucose (74-106) mg/dL POC Glucometer 337 H (74 to 106) mg/dL Hemoglobin A1c 8.00 H (4.5-6.0) % Calcium (8.4-10.2) mg/dL Total Bilirubin (0.2-1.3) mg/dL AST (17-59) U/L ALT (0-50) U/L Alkaline Phosphatase (38-126) U/L Troponin I (0.000-0.034) ng/mL Serum Total Protein (6.3-8.2) g/dL Albumin (3.5-5.0) g/dL TSH 3rd Generation 1.220 (0.47-4.68) mIU/L 11/06/23 Range/Units 11:22 WBC (4.0-10.5) x10^3/uL RBC (4.1-5.6) x10^6/uL Hgb (12.5-18.0) g/dL Hct (42-50) % MCV (78-100) fL MCH (26-32) pg MCHC (32-36) g/dL RDW (11.5-14.0) % Plt Count (150-450) x10^3/uL MPV (7.5-11.0) fL Gran % (36.0-66.0) % Immature Gran % (Auto) (0.00-0.4) % Nucleat RBC Rel Count (0.00-0.1) % Eos # (Auto) (0-0.5) x10^3/uL Immature Gran # (Auto) (0.00-0.03) x10^3u/L Absolute Lymphs (auto) (1.0-4.6) x10^3/uL Absolute Monos (auto) (0.0-1.3) x10^3/uL Absolute Nucleated RBC (0.00-0.01) x10^3u/L Lymphocytes % (24.0-44.0) % Monocytes % (0.0-12.0) % Eosinophils % (0.00-5.0) % Basophils % (0.0-0.4) % Absolute Granulocytes (1.4-6.9) x10^3/uL Basophils # (0-0.4) x10^3/uL Sodium (137-145) mmol/L Potassium (3.5-5.1) mmol/L Chloride (98-107) mmol/L Carbon Dioxide (22-30) mmol/L Anion Gap (5-15) MEQ/L BUN (9-20) mg/dL Creatinine (0.66-1.25) mg/dL Estimated GFR ML/MIN Glucose (74-106) mg/dL POC Glucometer 281 H (74 to 106) mg/dL Hemoglobin A1c (4.5-6.0) % Calcium (8.4-10.2) mg/dL Total Bilirubin (0.2-1.3) mg/dL AST (17-59) U/L ALT (0-50) U/L Alkaline Phosphatase (38-126) U/L Troponin I (0.000-0.034) ng/mL Serum Total Protein (6.3-8.2) g/dL Albumin (3.5-5.0) g/dL TSH 3rd Generation (0.47-4.68) mIU/L Micro Results-Entire Visit: Accuchecks Date 11/06/23 Date 11/05/23 Time 07:26 - Radiology Exams Ordered Rad Exams-Entire Visit: Radiology Procedures Category Date Time Status CHEST 1 VIEW (PORTABLE) Stat Exams 11/05/23 13:56 Completed CHEST WITH CONTRAST [CT] Stat Exams 11/05/23 15:17 Completed ECHO W/2D AND DOPPLER [US] Routine Exams 11/06/23 21:08 Taken - Procedures and Test Procedures and Tests throughout Hospitalization: Therapy Orders & Screens 11/05/23 18:22 EKG REPEAT IN AM Comment: Oxygen Nasal Cannula 2 lpm Comment: Respiratory Therapy Consult ONCE Comment: Reason For Exam: 11/05/23 18:47 RT Screen per Nursing Assess ONCE Comment: Protocol Order Physician Instructions: Greater than 3 points order RT Admission Screen Reason For Exam: Triggered on Admission Diagnosis: CHF EXACERBATION Diagnosis: CHF EXACERBATION Pneumonia: No Home O2: No Asthma: No CHF: Yes Home CPAP/BIPAP: No Home Nebs/MDI: Yes Total Points: 8 11/05/23 19:50 Respiratory Therapy Assessment DAILY Comment: Diagnosis: CHF EXACERBATION 11/06/23 09:58 Respiratory Therapy Assessment DAILY Comment: Diagnosis: shortness of breath 11/06/23 10:03 Flutter Therapy UD Comment: Diagnosis: shortness of breath Discharge Exam General Appearance: moderate distress, alert Neurologic Exam: alert, oriented x 3, cooperative, normal mood/affect, nml cerebellar function, sensation nml, No motor deficits Eye Exam: PERRL, EOMI, eyes nml inspection Ears, Nose, Throat Exam: normal ENT inspection, pharynx normal, moist mucous membranes Neck Exam: normal inspection, non-tender, supple, full range of motion Respiratory Exam: diminished breath sounds, crackles/rales, No respiratory distress Cardiovascular Exam: regular rate/rhythm, normal heart sounds, edema Gastrointestinal/Abdomen Exam: soft, distention, No tenderness, No mass Male Genitalia Exam: deferred Rectal Exam: deferred Back Exam: normal inspection, normal range of motion, No CVA tenderness, No vertebral tenderness Extremity Exam: normal inspection, normal range of motion Skin Exam: normal color, warm, dry Final Diagnosis/Problem List - Final Discharge Diagnosis/Problem (1) Acute on chronic diastolic heart failure Current Visit: Yes Status: Acute Assessment & Plan: trigger is unknown, although elevated troponin raises possibility of NSTEMI. However, patient adamantly denies any symptoms of chest pain or pressure. Repeat troponin is trending down (see below). He states he is compliant with all of his medications has had no change in diet or other medications. Perhaps he had a URI last week based on his symptoms, but still unclear why this would be his first severe exacerbation in 5 years on his current regimen. His r eported dry weight is 245-250 pounds, and he is currently 288 pounds on admission. Elevation in BNP and pulmonary edema on CXR are all consistent with CHF exacerbation. His last echo was done 13 months ago. Poor response to his initial dose of Bumex in the ER. His home dosing of Bumex is 1 mg BID; per the DOSE trial, equivalent dosing of 2-1/2 times the oral dose seem to be well- tolerated and led to shorter hospital stays with minimal impact on renal function. Start Lasix 80 mg IV BID, with dose now Trend troponins (see below) Repeat echocardiogram- EF 45% Check TSH- 1.220 Daily weights - edema worsening - tx to higher level of care. Code(s): I50.33 - ACUTE ON CHRONIC DIASTOLIC (CONGESTIVE) HEART FAILURE (2) NSTEMI (non-ST elevated myocardial infarction) Current Visit: Yes Status: Acute Assessment & Plan: - trop 1.140 2.100, 2.320 - 2:2 CHF - tx to higher level of care - heparin gtt started - tele Code(s): I21.4 - NON-ST ELEVATION (NSTEMI) MYOCARDIAL INFARCTION (3) Type 2 diabetes mellitus Current Visit: Yes Status: Acute Assessment & Plan: - A1C 8.0 - uncontrolled - Carb consistent diet with low Na+ - Lantus, s/s humalog, accuchecks ac/hs (4) HTN (hypertension) Current Visit: Yes Status: Acute Assessment & Plan: - stable - Cont home meds Code(s): I10 - ESSENTIAL (PRIMARY) HYPERTENSION (5) Acute renal failure (ARF) Current Visit: Yes Status: Acute Assessment & Plan: -Creat 1.96- baseline normal (6) Elevated d-dimer Current Visit: Yes Status: Acute Assessment & Plan: - 1.01 d-dimer - CT chest Impression: 1. Negative pulmonary embolus. 2. Cardiomegaly with bibasilar effusions/atelectasis favoring cardiac decompensation/CHF. Findings corresponding chest radiograph findings. 3. Chronic findings including degenerative spondylosis, bilateral gynecomastia, arteriosclerotic disease, cirrhotic liver, and old granulomatous disease. Code(s): R79.89 - OTHER SPECIFIED ABNORMAL FINDINGS OF BLOOD CHEMISTRY (7) Hypoxia Current Visit: Yes Status: Acute Assessment & Plan: - [place] throughout the day now on bipap - RT eval and treat - 2:2 CHF Code(s): R09.02 - HYPOXEMIA (8) Morbid obesity with BMI of 40.0-44.9, adult Current Visit: Yes Status: Acute Assessment & Plan: - Advised diet control Code(s): E66.01 - MORBID (SEVERE) OBESITY DUE TO EXCESS CALORIES; Z68.41 - BODY MASS INDEX [BMI] 40.0-44.9, ADULT - Discharge Discharge Date: 11/06/23 Disposition: DC TO OTHER HOSP Condition: Critical Prescriptions: Continue Pravastatin Sodium [Pravachol] 40 mg PO DAILY Aspirin [Baby Aspirin] 81 mg PO DAILY Spironolactone 25 mg [Aldactone 25 MG] 1 tab PO BID Famotidine 20 mg [Pepcid 20 MG] 40 mg PO DAILY Bumetanide 1 mg [Bumex 1 mg] 1 mg PO BID Glipizide 5 mg [Glucotrol 5 MG] 1 tab PO BID Amlodipine Besylate 5 mg [Norvasc 5 mg] 10 mg PO DAILY [place]ley-3 Fatty Acids/Fish Oil [Fish Oil 1,000 mg Capsule] 1 cap PO DAILY Vitamin E (Dl,Tocopheryl Acet) [Vitamin E] 1 cap PO DAILY Ascorbic Acid 500 mg [Vitamin C 500 MG] 1 tab PO DAILY Cholecalciferol (Vitamin D3) [Vitamin D-400] 10 mcg PO DAILY Zinc Gluconate 50 mg [Zinc Gluconate 50 MG] 50 mg PO DAILY Follow up with: JEFFERY BAKER MD [Primary Care Provider] -
[2023-11-06] MEDS: DUONEB 0.5-3 MG/3 ml Neb IH PRN (15:46)
[2023-11-06 16:12] LABS: Hematocrit 39.8 % (42-50); Hemoglobin 12.8 g/dL (12.5-18.0); Mean Cell Volume 101.8 fL (78-100); Mean Corpuscular Hemoglobin 32.7 pg (26-32); Mean Corpuscular Hgb Concent. 32.2 g/dL (32-36); Mean Platelet Volume 10.7 fL (7.5-11.0); Platelet Count 351 x10^3/uL (150-450); Red Blood Count 3.91 x10^6/uL (4.1-5.6); Red Cell Distribution Width 13.4 % (11.5-14.0); White Blood Count 19.6 x10^3/uL (4.0-10.5)
[2023-11-06 16:27] LABS: PROTIME 10.9 SECONDS (9.4-12.5); PTT 25.7 SECONDS (25.1-36.5)
[2023-11-06 16:31] VITALS: BP 134/62; PULSE 76; O2SAT 97
[2023-11-06] MEDS: HEPARIN 5000 UNITS/0.5 ML (HIGH RISK MED) IV STA (17:12)
[2023-11-06] MEDS: Heparin 25,000 units/D5W: USE ORDER SET PROTO 25,000 UNITS/250 ML BAG IV SCH (17:20)
[2023-11-06] MEDS ORDERED: Mucinex 600MG ER Tabs PO SCH (22:00)
[2023-11-06] MEDS ORDERED: ZOCOR 20MG PO SCH (22:00)
== END 2023-11-06 17:37 | DRG 280 ==
LOC: ED 13:44 → OBSVTOIN 18:21 → MED SURG 18:21
PROVIDERS: ADMIT Internal Medicine; ATTEND Internal Medicine
DX: I11.0 Hypertensive heart disease with heart failure (principal); I50.33 Acute on chronic diastolic (congestive) heart failure; I21.4 Non-ST elevation (NSTEMI) myocardial infarction; N17.9 Acute kidney failure, unspecified; Z68.41 Body mass index [BMI] 40.0-44.9, adult; E11.9 Type 2 diabetes mellitus without complications; R79.89 Other specified abnormal findings of blood chemistry; R09.02 Hypoxemia; E78.5 Hyperlipidemia, unspecified; E66.01 Morbid (severe) obesity due to excess calories; R60.0 Localized edema; D72.829 Elevated white blood cell count, unspecified; Z79.899 Other long term (current) drug therapy; Z20.828 Contact with and (suspected) exposure to other viral communicable diseases; Z87.891 Personal history of nicotine dependence
CPT/HCPCS: 36000; 36415; 71045; 71260; 80053; 82947; 83036; 83735; 83880; 84443; 84484; 85025; 85027; 85379; 85610; 85730; 87040; 93005; 93041; 93306; 94002; 94640; 94667; 94760; 94762; 96374; 99285; 99291; Q3014; J1644; J1815; J1817; J1940; A9270-GY